=== PATIENT | female | born 1950 | race Caucasian/White ===

== ENCOUNTER 2016-05-07 13:34 | Outpatient (CLI) | payer MEDICARE | END 2016-05-07 23:59 | DX: E78.5 Hyperlipidemia, unspecified (principal); M67.40 Ganglion, unspecified site ==

== ENCOUNTER 2016-08-05 09:20 | Outpatient (CLI) | payer MEDICARE | END 2016-08-05 09:21 | disposition home or self-care (01) | DX: I10 Essential (primary) hypertension (principal) ==

== ENCOUNTER 2018-06-29 08:00 | Outpatient (CLI) | payer MEDICARE ==
[2018-06-29 19:54] LABS: BASOPHILS # (AUTO) 0.1 10^3/uL (0.0-0.1); BASOPHILS % (AUTO) 0.8 %; EOSINOPHILS # (AUTO) 0.1 10^3/uL (0.0-0.7); EOSINOPHILS % (AUTO) 1.6 %; HGB - HEMOGLOBIN 13.8 g/dL (12.0-16.0); LYMPHOCYTES # (AUTO) 2.2 10^3/uL (1.5-3.5); LYMPHOCYTES % (AUTO) 31.9 %; MEAN CORPUSCULAR HEMOGLOBIN 33.1 pg (27.0-31.0); MEAN CORPUSCULAR HGB CONC 33.7 g/dL (32.0-36.0); MEAN CORPUSCULAR VOLUME 98.1 fL (81.0-99.0); MEAN PLATELET VOLUME 7.2 fL (7.9-10.8); MONOCYTES # (AUTO) 0.5 10^3/uL (0.0-1.0); MONOCYTES % (AUTO) 6.9 %; NEUTROPHILS # (AUTO) 4.1 10^3/uL (1.5-6.6); NEUTROPHILS % (AUTO) 58.8 %; PLT - PLATELET COUNT 379 10^3/uL (130-450); RED BLOOD COUNT 4.18 10^6/uL (4.20-5.40); RED CELL DISTRIBUTION WIDTH 13.2 % (12.0-15.0)
[2018-06-29 20:15] LABS: ALBUMIN 4.4 g/dL (3.2-5.5); ALBUMIN/GLOBULIN RATIO 1.7 (1.0-2.2); ALKALINE PHOSPHATASE 47 IU/L (42-121); ALT ALANINE AMINOTRANSFERASE 16 IU/L (10-60); AST ASPARTATE AMINOTRANSFERASE 19 IU/L (10-42); BILIRUBIN,TOTAL 0.8 mg/dL (0.2-1.0); BUN - BLOOD UREA NITROGEN 20 mg/dL (6-20); CALCIUM 9.1 mg/dL (8.5-10.3); CARBON DIOXIDE - CO2 27 mmol/L (21-32); CHLORIDE 101 mmol/L (101-111); CHOL/HDL RATIO 2.5 (<4.4); CHOLESTEROL 186 mg/dL; CREATININE 0.7 mg/dL (0.4-1.0); GFR - MDRD 83 (>89); GLUCOSE 98 mg/dL (70-100); HDL CHOLESTEROL 75 mg/dL; LDL CHOLESTEROL,CALCULATED 97 mg/dL; LDL/HDL RATIO 1.3 (<4.4); SODIUM 136 mmol/L (135-145); VLDL CHOLESTEROL 14 mg/dL
== END 2018-06-29 23:59 | disposition home or self-care (01) ==
LOC: LAB.WCP 08:00
PROVIDERS: ATTEND Family Medicine
DX: M19.041 Primary osteoarthritis, right hand (principal); M19.042 Primary osteoarthritis, left hand; D12.6 Benign neoplasm of colon, unspecified; E78.5 Hyperlipidemia, unspecified; I10 Essential (primary) hypertension
CPT/HCPCS: 36415; 80053; 80061; 83721; 85025